=== PATIENT | male | born 1975 | race Caucasian/White ===

== ENCOUNTER 2017-05-13 21:20 | Emergency (ER) | payer OTHER ==
[2017-05-13 21:32] VITALS: RESP 16; TEMP 98.2
[2017-05-13] MEDS ORDERED: PROPARACAINE 0.5% OPHTH DROPS 15 ML BTL RIGHT EYE STA (21:40)
[2017-05-13] MEDS ORDERED: PROPARACAINE 0.5% OPHTH DROPS 15 ML BTL ONE (21:42)
--- NOTE | 2017-05-13 22:01 | ED ---
General Adult HPI - General Chief complaint: ENT Stated complaint: FB R eye Time Seen by Provider: 05/13/17 21:39 Source: patient Mode of arrival: ambulatory Limitations: no limitations - History of Present Illness Initial comments: 41-year-old male patient was asked to emergency department today for evaluation of right eye discomfort. 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 Patient is concerned that he has metal in his eye. Patient states that he was fine prior to lying down to take a nap around 7 PM. Patient states when he woke from his nap he felt like he had something in his eye. Patient states that the pain is a scratching pain. Patient states that there has been a lot of clear drainage from the eye. Patient denies any blurred or double vision. Denies any headache, neck pain or any other concerns. - Related Data Home Medications Medication Instructions Recorded Confirmed No Known Home Medications [No 05/13/17 05/13/17 Known Home Medications] Allergies Allergy/AdvReac Type Severity Reaction Status Date / Time No Known Allergies Allergy Verified 05/13/17 21:27 Review of Systems ROS Statement: Those systems with pertinent positive or pertinent negative responses have been documented in the HPI. ROS Other: All systems not noted in ROS Statement are negative. Past Medical History Past Medical History: No Reported History History of Any Multi-Drug Resistant Organisms: None Reported Past Surgical History: No Surgical Hx Reported Past Psychological History: No Psychological Hx Reported Smoking Status: Former smoker Past Alcohol Use History: None Reported Past Drug Use History: Marijuana General Exam Limitations: no limitations General appearance: alert, in no apparent distress Eye exam: Present: normal appearance, PERRL, EOMI, conjunctival injection ( Right eye, mild), other (Proparacaine drops instilled to right eye, fluorescein stain performed with examination by Billings lamp showed no abrasion or laceration. Did flip eyelid. Did remove a white hair from the eye. There is no evidence of any metal flakes.). Absent: scleral icterus, periorbital swelling Respiratory exam: Present: normal lung sounds bilaterally. Absent: respiratory distress, wheezes, rales, rhonchi, stridor Cardiovascular Exam: Present: regular rate, normal rhythm, normal heart sounds. Absent: systolic murmur, diastolic murmur, rubs, gallop, clicks Neurological exam: Present: alert, oriented X3, CN II-XII intact Psychiatric exam: Present: normal affect, normal mood Skin exam: Present: warm, dry, intact, normal color. Absent: rash Course Vital Signs 05/13/17 05/13/17 21:27 22:09 Temperature 98.2 F Pulse Rate 67 68 Respiratory 16 16 Rate Blood Pressure 123/70 132/65 O2 Sat by Pulse 98 100 Oximetry Medical Decision Making - Medical Decision Making 41-year-old male patient presented for evaluation of right IV discomfort. Patient believed that he had a metal flake in his eye from work. Florescein stain with Wood's lamp examination did not reveal any abrasion or laceration, there was a white hair removed from the eye. Did have patient wait after proparacaine drop wore off stated it felt much better. Patient did not have any visual disturbance. Patient discharged home to follow up with his primary care physician for recheck in 1-2 days. Patient instructed to return here immediately for any new, worsening, or concerning symptoms. Patient verbalized understanding and agreed this plan. Disposition Clinical Impression: Foreign body of right eye Disposition: HOME SELF-CARE Condition: Good Instructions: Eye Foreign Body (ED) Additional Instructions: Follow-up with legal investigator if symptoms persist. Follow-up with primary care physician for recheck in 1-2 days. Return here immediately for any new, worsening, or concerning symptoms. Referrals: Ade Armas MD [Primary Care Provider] - 1-2 days Time of Disposition: 22:01
[2017-05-13 22:10] VITALS: BP 132/65; PULSE 68
== END 2017-05-13 22:09 | disposition home or self-care (01) ==
LOC: EC 21:20
DX: T15.91XA Foreign body on external eye, part unspecified, right eye, initial encounter (principal); Z87.891 Personal history of nicotine dependence
CPT/HCPCS: 99283

== ENCOUNTER 2017-08-07 23:45 | Emergency (ER) | payer OTHER ==
[2017-08-07 23:55] VITALS: RESP 18
[2017-08-07] MEDS ORDERED: PROPARACAINE 0.5% OPHTH DROPS 15 ML BTL BOTH EYES STA (23:59)
[2017-08-08] MEDS ORDERED: PROPARACAINE 0.5% OPHTH DROPS 15 ML BTL ONE
[2017-08-08 01:10] VITALS: BP 121/70; PULSE 67; TEMP 97.8
[2017-08-08] MEDS ORDERED: ERYTHROMYCIN 5 MG/GM OPHTH OINT 3.5 GM TUBE BOTH EYES STA (01:14)
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
== END 2017-08-08 01:36 | disposition home or self-care (01) ==
LOC: EC 23:45
DX: H16.133 Photokeratitis, bilateral (principal); Z87.891 Personal history of nicotine dependence; W89.8XXA Exposure to other man-made visible and ultraviolet light, initial encounter
CPT/HCPCS: 99283